=== PATIENT | female | born 1985 | race Caucasian/White ===

== ENCOUNTER 2020-01-22 15:10 | Emergency (ER) | payer MEDICAID ==
[2020-01-22] MEDS ORDERED: Sodium Chloride 0.9% 1000 ML 1,000 ML IV STA (15:33)
[2020-01-22 16:00] LABS: Absolute Neutrophil Ct (ANC) 10.25 (1.4-6.9); BASOPHIL % 0.2 % (0.0-0.4); Basophil (Absolute #) 0.02 (0-0.4); Eosinophil % 0.1 % (0.00-5.0); Eosinophil (Absolute #) 0.01 (0-0.5); Hematocrit 38.1 % (35-47); Hemoglobin 12.4 gm/dl (12.0-16.0); Lymphocyte (Absolute #) 2.28 (1.0-4.6); Lymphocytes % 17.2 % (24.0-44.0); Mean Cell Volume 86.8 fl (78-100); Mean Corpuscular Hemoglobin 28.2 pg (26-32); Mean Corpuscular Hgb Concent. 32.5 g/dl (32-36); Mean Platelet Volume 10.5 fl (7.5-11.0); Monocyte (Absolute #) 0.66 (0.0-1.3); Neutrophil % 77.5 % (36.0-66.0); Platelet Count 193 K/mm3 (150-450); Red Blood Count 4.39 M/mm3 (4.1-5.4); Red Cell Distribution Width 12.6 % (11.5-14.0); White Blood Count 13.2 K/mm3 (4.0-10.5)
[2020-01-22] MEDS ORDERED: Sodium Chloride 0.9% 1000 ML 1,000 ML ONE (16:02)
[2020-01-22 16:13] VITALS: O2SAT 98
[2020-01-22 16:19] LABS: ALBUMIN 3.6 g/dL (3.5-5.0); ALKALINE PHOSPHATASE 61 U/L (38-126); ANION GAP 8.6 MEQ/L (5-15); BLOOD UREA NITROGEN 8 mg/dL (7-17); CHLORIDE 102 mmol/L (98-107); Calcium 8.9 mg/dL (8.4-10.2); Carbon Dioxide 26 mmol/L (22-30); Creatinine 1 0.52 mg/dL (0.52-1.04); EST GLOMERULAR FILTRATION RATE > 60.0 ML/MIN; Glucose 103 mg/dL (74-106); Potassium 3.7 mmol/L (3.5-5.1); SGOT/AST 22 U/L (14-36); SGPT/ALT 19 U/L (0-35); SODIUM 133 mmol/L (137-145); Total Protein 6.8 g/dL (6.3-8.2)
--- NOTE | 2020-01-22 16:22 | ERPHSYRPT ---
- History of Present Illness Time Seen by Provider: 01/22/20 15:40 Source: patient Patient Subjective Stated Complaint: "I had lower back pain then some spotting and had a clot." Triage Nursing Assessment: Patient reported lower back pain with associated mild vaginal spotting and single clot expulsion. Patient is . Patient also reported mild fatigue over the past week. Denied abdominal pain, nausea, or vomiting. Denied any recent injuries/illnesses. Denied dysuria, frequency, or urgency. Pupils 3mm PERRL, neck supple non-tender. Symmetrical chest expansion. Heart tones S1 S2 regular rate and rhythme. Lungs clear to auscultation with adequate airflow. Peripheral pulses +2. Abdomen soft non-tender non-distended. Bowel sounds present throughout all quadrants. No palpable hepatospelenomegaly. No noted dependent edema. Physician History: Patient is a at 11 weeks 4 days who is O positive who 4 hours prior to coming into the emergency department, patient had some blood on the toilet paper after urinating and passing a clot that she felt was vaginal. She had some mild low back pain with this also. Patient called her OB's office who recommended she come in to the emergency room for further evaluation Timing/Duration: hour(s) (4), sudden, improved Activites at Onset: other (urinating) Onset Location: vaginal, low back pain Pain Radiation: none Severity of Pain-Max: moderate Severity of Pain-Current: none Prior abdominal problems: none Modifying Factors: Worsens With: urinating Associated Symptoms: , lower back pain, No abdominal pain, No fever, No chills, No diaphoresis, No nausea, No vomiting, No dysuria, No urinary frequency, No swelling, No vaginal discharge, No vaginal fluid leakage Allergies/Adverse Reactions: No Known Drug Allergies Allergy (Unverified 01/22/20 15:22) Home Medications: No Reportable Medications [No Reported Medications] 01/22/20 [History] Hx Tetanus, Diphtheria Vaccination/Date Given: Yes Hx Influenza Vaccination/Date Given: No Travel Risk - International Travel Have you traveled outside of the country in past 3 weeks: No - Coronavirus Screening Are you exhibiting any of the following symptoms?: No Close contact with a COVID-19 positive Pt in past 14-21 Days: No - Review of Systems Constitutional: Fatigue, No Fever, No Chills, No Malaise, No Night Sweats, No Weakness Eyes: No Symptoms Ears, Nose, & Throat: No Throat Pain Respiratory: No Cough, No Dyspnea Cardiac: No Chest Pain, No Edema, No Syncope Abdominal/Gastrointestinal: No Abdominal Pain, No Nausea, No Vomiting, No Diarrhea, No Hematemesis, No Hematochezia, No Melena Genitourinary Symptoms: Hematuria, Vaginal Bleeding, No Dysuria, No Flank Pain Musculoskeletal: No Back Pain, No Neck Pain Skin: No Rash Neurological: No Dizziness, No Focal Weakness, No Headache, No Parasthesia, No Sensory Changes Psychological: No Symptoms Endocrine: No Symptoms, No Polyuria Hematologic/Lymphatic: No Easy Bleeding, No Easy Bruising All Other Systems: Reviewed and Negative - Past Medical History Pertinent Past Medical History: No - Past Surgical History Past Surgical History: Yes - Social History Smoking Status: Never smoker Exposure to second hand smoke: No Drug Use: none Patient Lives Alone: No - Female History Hx Now: Yes Expected Date of Delivery: 08/08/20 - Nursing Vital Signs Nursing Vital Signs: Initial Vital Signs Temperature 98.7 F 01/22/20 15:11 Pulse Rate 94 H 01/22/20 15:11 Respiratory Rate 16 01/22/20 15:11 Blood Pressure 124/70 01/22/20 15:11 O2 Sat by Pulse Oximetry 100 01/22/20 15:11 Pain Scale Pain Intensity 0 - Physical Exam General Appearance: no apparent distress, alert Eye Exam: PERRL/EOMI, eyes nml inspection Ears, Nose, Throat Exam: normal ENT inspection, pharynx normal, moist mucous membranes Neck Exam: normal inspection, non-tender, supple, full range of motion Respiratory Exam: normal breath sounds, lungs clear, No respiratory distress Cardiovascular Exam: regular rate/rhythm, normal heart sounds, normal peripheral pulses Gastrointestinal/Abdomen Exam: soft, normal bowel sounds, No tenderness, No distention, No mass, No guarding Back Exam: normal inspection, normal range of motion, No CVA tenderness, No vertebral tenderness Extremity Exam: normal inspection, normal range of motion, pelvis stable Neurologic Exam: alert, oriented x 3, cooperative, set off press operator II-XII nml as tested, normal mood/affect, sensation nml, No motor deficits Skin Exam: normal color, warm, dry, No rash, No petechiae, No jaundice Lymphatic Exam: No adenopathy SpO2 Interpretation: normal SpO2: 98 O2 Delivery: Room Air - Radiology Ultrasound Exam OB Ultrasound: Other (Per radiologist interpretation: Single viable intrauterine measuring 11 weeks 6 days. Expected date of confinement is August 06, 2020. Left ovary unremarkable. Right ovary not seen. No suspicious adnexal mass or free fluid. No abnormal subchorionic fluid.) Ordered Tests: Active Orders 24 hr Category Date Time Status Heart Tones-ED STAT Care 01/22/20 15:20 Active IV Insertion STAT Care 01/22/20 15:33 Active Pelvic Exam Assist STAT Care 01/22/20 15:33 Active OB <14 WKS 1ST GESTATION [US] Stat Exams 01/22/20 15:33 Completed CBC W DIFF Stat Lab 01/22/20 15:50 Completed CMP Stat Lab 01/22/20 15:50 Completed HCG QUALITATIVE,SERUM Stat Lab 01/22/20 15:50 Completed HCG, Quantitative (Inhouse) Stat Lab 01/22/20 16:42 Received UA W/RFX UR CULTURE Stat Lab 01/22/20 16:21 Completed Medication Summary Discontinued Medications Generic Name Dose Route Start Last Admin Trade Name Freq PRN Reason Stop Dose Admin Sodium Chloride 1,000 mls @ 999 mls/hr 01/22/20 15:33 01/22/20 17:09 Sodium Chloride 0.9% 1000 Ml IV 01/22/20 16:33 Infused .Q1H1M STA Infusion Sodium Chloride Confirm 01/22/20 16:02 Sodium Chloride 0.9% 1000 Ml Administered 01/22/20 16:03 Dose 1,000 mls @ ud .ROUTE .K-MED ONE Lab/Rad Data: Laboratory Result Diagrams 01/22/20 15:50 01/22/20 15:50 Laboratory Results 01/22/20 01/22/20 01/22/20 Range/Units 16:42 16:21 15:50 WBC (4.0-10.5) K/mm3 RBC (4.1-5.4) M/mm3 Hgb (12.0-16.0) gm/dl Hct (35-47) % MCV (78-100) fl MCH (26-32) pg MCHC (32-36) g/dl RDW (11.5-14.0) % Plt Count (150-450) K/mm3 MPV (7.5-11.0) fl Gran % (36.0-66.0) % Eos # (Auto) (0-0.5) Absolute Lymphs (auto) (1.0-4.6) Absolute Monos (auto) (0.0-1.3) Lymphocytes % (24.0-44.0) % Monocytes % (0.0-12.0) % Eosinophils % (0.00-5.0) % Basophils % (0.0-0.4) % Absolute Granulocytes (1.4-6.9) Basophils # (0-0.4) Sodium (137-145) mmol/L Potassium (3.5-5.1) mmol/L Chloride (98-107) mmol/L Carbon Dioxide (22-30) mmol/L Anion Gap (5-15) MEQ/L BUN (7-17) mg/dL Creatinine (0.52-1.04) mg/dL Estimated GFR ML/MIN Glucose (74-106) mg/dL Calcium (8.4-10.2) mg/dL Total Bilirubin (0.2-1.3) mg/dL AST (14-36) U/L ALT (0-35) U/L Alkaline Phosphatase (38-126) U/L Serum Total Protein (6.3-8.2) g/dL Albumin (3.5-5.0) g/dL Serum , Qual POSITIVE (Negative) Urine Color STRAW (YELLOW) Urine Appearance CLEAR (CLEAR) Urine pH 7.0 (5-6) Ur Specific [place] 1.002 (1.005-1.025) Urine Protein NEGATIVE (Negative) Urine Ketones NEGATIVE (NEGATIVE) Urine Blood NEGATIVE (0-5) Heriberto/ul Urine Nitrite NEGATIVE (NEGATIVE) Urine Bilirubin NEGATIVE (NEGATIVE) Urine Urobilinogen NEGATIVE (0-1) mg/dL Ur Leukocyte Esterase NEGATIVE (NEGATIVE) Urine WBC (Auto) NONE (0-5) /HPF Urine RBC (Auto) NONE (0-2) /HPF U Epithel Cells (Auto) NONE (FEW) /HPF Urine Bacteria (Auto) NONE (NEGATIVE) /HPF Urine Mucus (Auto) SLIGHT (NEGATIVE) /HPF Urine Culture Reflexed NO (NO) Urine Glucose NEGATIVE (NEGATIVE) mg/dL ABO Group O Rh Factor POSITIVE Antibody Screen NEGATIVE (NEGATIVE) 01/22/20 01/22/20 Range/Units 15:50 15:50 WBC 13.2 H (4.0-10.5) K/mm3 RBC 4.39 (4.1-5.4) M/mm3 Hgb 12.4 (12.0-16.0) gm/dl Hct 38.1 (35-47) % MCV 86.8 (78-100) fl MCH 28.2 (26-32) pg MCHC 32.5 (32-36) g/dl RDW 12.6 (11.5-14.0) % Plt Count 193 (150-450) K/mm3 MPV 10.5 (7.5-11.0) fl Gran % 77.5 H (36.0-66.0) % Eos # (Auto) 0.01 (0-0.5) Absolute Lymphs (auto) 2.28 (1.0-4.6) Absolute Monos (auto) 0.66 (0.0-1.3) Lymphocytes % 17.2 L (24.0-44.0) % Monocytes % 5.0 (0.0-12.0) % Eosinophils % 0.1 (0.00-5.0) % Basophils % 0.2 (0.0-0.4) % Absolute Granulocytes 10.25 H (1.4-6.9) Basophils # 0.02 (0-0.4) Sodium 133 L (137-145) mmol/L Potassium 3.7 (3.5-5.1) mmol/L Chloride 102 (98-107) mmol/L Carbon Dioxide 26 (22-30) mmol/L Anion Gap 8.6 (5-15) MEQ/L BUN 8 (7-17) mg/dL Creatinine 0.52 (0.52-1.04) mg/dL Estimated GFR > 60.0 ML/MIN Glucose 103 (74-106) mg/dL Calcium 8.9 (8.4-10.2) mg/dL Total Bilirubin 0.40 (0.2-1.3) mg/dL AST 22 (14-36) U/L ALT 19 (0-35) U/L Alkaline Phosphatase 61 (38-126) U/L Serum Total Protein 6.8 (6.3-8.2) g/dL Albumin 3.6 (3.5-5.0) g/dL Serum , Qual (Negative) Urine Color (YELLOW) Urine Appearance (CLEAR) Urine pH (5-6) Ur Specific [place] (1.005-1.025) Urine Protein (Negative) Urine Ketones (NEGATIVE) Urine Blood (0-5) Heriberto/ul Urine Nitrite (NEGATIVE) Urine Bilirubin (NEGATIVE) Urine Urobilinogen (0-1) mg/dL Ur Leukocyte Esterase (NEGATIVE) Urine WBC (Auto) (0-5) /HPF Urine RBC (Auto) (0-2) /HPF U Epithel Cells (Auto) (FEW) /HPF Urine Bacteria (Auto) (NEGATIVE) /HPF Urine Mucus (Auto) (NEGATIVE) /HPF Urine Culture Reflexed (NO) Urine Glucose (NEGATIVE) mg/dL ABO Group Rh Factor Antibody Screen (NEGATIVE) - Progress Progress: re-examined Progress Note: 01/22/20 17:48 Patient feels well and is hemodynamically in good condition. Patient denies any further vaginal bleeding or leakage of fluid 01/22/20 17:51 Patient came into the emergency department due to having concerns of blood after urinating and passing a blood clot as she is in her first trimester of her . Patient's lab work was normal with her blood type being O+ and a transvaginal ultrasound showed an intrauterine that was viable at 11 weeks +6 days. Patient had no signs of any subchorionic fluid collection or any other abnormalities although the one ovary was not seen very well. Patient was discussed with her BASIN FINISH OPERATOR TIG WELDER, Dr. Chowdhury, who stated patient did not require a pelvic examination and could be discharged home to follow-up with him as an outpatient in his office. I reviewed with patient in detail what signs and symptoms to return back to the emergency department as she was hemodynamically good condition, no signs of infection in the urinalysis, normal LFTs, renal function, and no anemia on her lab work today to explain her symptoms. Blood Culture(s) Obtained: No Antibiotics given: No Discussed with : Griffin (At 16:40, discussed the patient with Dr. Chowdhury, patient's OB. states patient does not need a pelvic exam with the ultrasound showing its results and want me to reassure the patient and follow the patient up as an outpatient with him in his office.) Will see patient in: office Counseled pt/family regarding: lab results, diagnosis, need for follow-up, rad results - Departure Departure Disposition: Home Clinical Impression: First trimester bleeding, Low back pain during in first trimester Condition: Good Critical Care Time: No Referrals: CARROLL CHOWDHURY DO [Primary Care Provider] - 01/23/20 Instructions: Bleeding With (DC), Threatened Miscarriage (DC), Low Back Pain (DC) Additional Instructions: Return immediately back to the emergency department if you have any new abdominal pain, new fever, new painful urination, new blood in the urine, new back pain, worsening vaginal bleeding, new leakage of fluid, new headache, new vision changes, new pain in the abdomen, new swelling in the face or hands, new shortness of breath, new pain on breathing or any other concerning signs or symptoms that were not present at today's emergency room visit for immediate reevaluation in the emergency department
--- NOTE | 2020-01-22 16:33 | XRAY ---
Indication: Bleeding. Two-dimensional transabdominal early OB ultrasound performed. Comparison: None There is a single viable intrauterine . Mean crown-rump length measures 5.14 cm corresponding to 11 weeks 6 days. heart rate 163 BPM. No abnormal subchorionic fluid. Left ovary unremarkable. Right ovary not seen. No suspicious adnexal mass or free fluid. Impression: Single viable intrauterine measuring 11 weeks 6 days. Expected date confinement is August 06, 2020.
[2020-01-22 16:39] LABS: Appearance CLEAR (CLEAR); Bilirubin NEGATIVE (NEGATIVE); Blood NEGATIVE Ery/ul (0-5); Glucose NEGATIVE (NEGATIVE); Ketones NEGATIVE (NEGATIVE); Leukocyte Esterase NEGATIVE (NEGATIVE); Mucus SLIGHT /HPF (NEGATIVE); Nitrite NEGATIVE (NEGATIVE); Protein,Urine Dip NEGATIVE (Negative); Specific Gravity 1.002 (1.005-1.025); Urobilinogen NEGATIVE mg/dL (0-1)
[2020-01-22 17:14] VITALS: BP 117/75; PULSE 85
[2020-01-22 17:33] LABS: ABO TYPING O; Antibody Screen NEGATIVE (NEGATIVE); RH TYPING POSITIVE
== END 2020-01-22 17:53 | disposition home or self-care (01) ==
LOC: ED 15:10
DX: O20.9 Hemorrhage in early pregnancy, unspecified (principal); Z3A.11 11 weeks gestation of pregnancy; M54.5 Low back pain
CPT/HCPCS: 36000; 36415; 76801; 80053; 81001; 81025; 84702; 85025; 86850; 86900; 86901; 87491; 87591; 96360; 99284

== ENCOUNTER 2020-06-01 07:53 | Emergency (ER) | payer OTHER ==
[2020-06-01] MEDS ORDERED: Sodium Chloride 0.9% 1000 ML 1,000 ML ONE ×2 (08:17→10:13)
[2020-06-01] MEDS ORDERED: Zofran 4 MG/2 ML VIAL ONE (08:17)
[2020-06-01] MEDS: Zofran 4 MG/2 ML VIAL IV ONE (08:18)
[2020-06-01] MEDS: Sodium Chloride 0.9% 1000 ML 1,000 ML IV STA ×2 (08:18→10:17)
[2020-06-01 08:22] LABS: Absolute Neutrophil Ct (ANC) 13.16 (1.4-6.9); BASOPHIL % 0.1 % (0.0-0.4); Basophil (Absolute #) 0.02 (0-0.4); Eosinophil (Absolute #) 0 (0-0.5); Hematocrit 38.7 % (35-47); Hemoglobin 12.7 gm/dl (12.0-16.0); Lymphocyte (Absolute #) 1.48 (1.0-4.6); Lymphocytes % 9.9 % (24.0-44.0); Mean Corpuscular Hemoglobin 28.2 pg (26-32); Mean Corpuscular Hgb Concent. 32.8 g/dl (32-36); Mean Platelet Volume 10.5 fl (7.5-11.0); Monocyte (Absolute #) 0.33 (0.0-1.3); Monocytes % 2.2 % (0.0-12.0); Neutrophil % 87.8 % (36.0-66.0); Platelet Count 242 K/mm3 (150-450); Red Cell Distribution Width 12.7 % (11.5-14.0)
[2020-06-01 08:34] LABS: ALBUMIN 3.6 g/dL (3.5-5.0); ALKALINE PHOSPHATASE 106 U/L (38-126); AMYLASE 60 U/L (30-110); ANION GAP 13.6 MEQ/L (5-15); BLOOD UREA NITROGEN 4 mg/dL (7-17); CHLORIDE 101 mmol/L (98-107); Calcium 8.8 mg/dL (8.4-10.2); Carbon Dioxide 23 mmol/L (22-30); Creatinine 1 0.39 mg/dL (0.52-1.04); EST GLOMERULAR FILTRATION RATE > 60.0 ML/MIN; Glucose 110 mg/dL (74-106); LIPASE 60 U/L (23-300); Potassium 3.6 mmol/L (3.5-5.1); SGOT/AST 27 U/L (14-36); SGPT/ALT 23 U/L (0-35); SODIUM 134 mmol/L (137-145); Total Protein 6.7 g/dL (6.3-8.2)
--- NOTE | 2020-06-01 08:34 | ERPHSYRPT ---
- History of Present Illness Historian: patient Exam Limitations: no limitations Patient Subjective Stated Complaint: abd pain, vomiting yesterday, bilateral feet swelling Triage Nursing Assessment: pt to ED c/o abd pain epigastric region, emesis yesterday, and bilateral feet swelling onset yesterday. rates 8/10 pain that radiates around to lower back, relieved by ice/heat therapy. on assessment, pt does alert RN that she is 30 wks and 1 day today. second , first was 10 years ago. Physician History: 34 yo wf who is 30 wks presents w N/V x11hr's w mild/mod epigastric pain. She denies vag bleeding/DC, hematemesis/ diarrhea/melena/hematochezia/dysuria/hematuria/fever. Timing/Duration: hour(s) (11hrs) Activities at Onset: rest Abdominal Pain Onset Location: epigastric Pain Radiation: back Severity of Pain-Max: mild Severity of Pain-Current: mild Modifying Factors: Improves With: nothing Associated Symptoms: back, nausea, vomiting, No chest pain, No diaphoresis, No diarrhea, No fever/chills, No fatigue, No headache, No heartburn, No loss of appetite, No neck pain, No rash, No shortness of breath, No syncope, No weakness Previous symptoms: same symptoms as today Allergies/Adverse Reactions: No Known Drug Allergies Allergy (Verified 06/01/20 07:55) Hx Tetanus, Diphtheria Vaccination/Date Given: Yes Hx Influenza Vaccination/Date Given: No Immunizations Up to Date: Yes Travel Risk - International Travel Have you traveled outside of the country in past 3 weeks: No - Coronavirus Screening Are you exhibiting any of the following symptoms?: Yes Symptoms: Vomiting/Diarrhea Close contact with a COVID-19 positive Pt in past 14-21 Days: No - Review of Systems Constitutional: No Symptoms Eyes: No Symptoms Ears, Nose, & Throat: No Symptoms Respiratory: No Symptoms Cardiac: No Symptoms Genitourinary Symptoms: No Symptoms Musculoskeletal: No Symptoms Skin: No Symptoms Neurological: No Symptoms Psychological: No Symptoms Endocrine: No Symptoms Hematologic/Lymphatic: No Symptoms Immunological/Allergic: No Symptoms - Past Medical History Pertinent Past Medical History: No - Past Surgical History Past Surgical History: Yes - Social History Smoking Status: Never smoker Exposure to second hand smoke: No Drug Use: none Patient Lives Alone: No - Female History Hx Now: Yes (30 weeks 1 day) - Nursing Vital Signs Nursing Vital Signs: Initial Vital Signs Temperature 98 F 06/01/20 07:56 Pulse Rate 104 H 06/01/20 07:56 Respiratory Rate 18 06/01/20 07:56 Blood Pressure 137/62 06/01/20 07:56 O2 Sat by Pulse Oximetry 100 06/01/20 07:56 Pain Scale Pain Intensity 1 - Physical Exam General Appearance: no apparent distress Eye Exam: PERRL/EOMI, eyes nml inspection Ears, Nose, Throat Exam: normal ENT inspection, TMs normal, pharynx normal, moist mucous membranes Neck Exam: normal inspection, non-tender, No meningismus, No mass, No Brudzinski, No Kernig's, No carotid bruit Respiratory Exam: normal breath sounds, lungs clear, airway intact Cardiovascular Exam: regular rate/rhythm, normal heart sounds, normal peripheral pulses, No murmur Gastrointestinal/Abdomen Exam: soft, normal bowel sounds, tenderness (Mild diffuse) Back Exam: normal inspection, normal range of motion, No CVA tenderness, No vertebral tenderness Extremity Exam: normal inspection, normal range of motion Neurologic Exam: alert, oriented x 3, cooperative, soup person II-XII nml as tested, normal mood/affect, nml cerebellar function, nml station & gait, sensation nml SpO2: 100 - Course Nursing assessment & vital signs reviewed: Yes - Radiology Ultrasound Exam Abdomen Ultrasound: discussed w/radiologist (FHT 133/breech/SHIRAZ 22.5/posterior placenta wo abruption-previa) Ordered Tests: Active Orders 24 hr Category Date Time Status IV Insertion STAT Care 06/01/20 08:12 Completed GALLBLADDER [US] Stat Exams 06/01/20 09:22 Completed OB FOLLOW UP PER FETUS [US] Stat Exams 06/01/20 09:22 Completed AMYLASE Stat Lab 06/01/20 08:21 Completed CBC W DIFF Stat Lab 06/01/20 08:21 Completed CMP Stat Lab 06/01/20 08:21 Completed CULTURE,URINE Stat Lab 06/01/20 08:14 Received LIPASE Stat Lab 06/01/20 08:21 Completed UA W/RFX UR CULTURE Stat Lab 06/01/20 08:14 Completed Medication Summary Discontinued Medications Generic Name Dose Route Start Last Admin Trade Name Freq PRN Reason Stop Dose Admin Fentanyl Citrate 25 mcg 06/01/20 10:06 06/01/20 10:17 Sublimaze 100 Mcg/2 Ml IV 06/01/20 10:07 25 mcg STAT ONE Administration Fentanyl Citrate Confirm 06/01/20 10:13 Sublimaze 100 Mcg/2 Ml Administered 06/01/20 10:14 Dose 100 mcg .ROUTE .STK-MED ONE Sodium Chloride 1,000 mls @ 999 mls/hr 06/01/20 08:12 06/01/20 09:21 Sodium Chloride 0.9% 1000 Ml IV 06/01/20 09:12 Infused .Q1H1M STA Infusion Sodium Chloride Confirm 06/01/20 08:17 Sodium Chloride 0.9% 1000 Ml Administered 06/01/20 08:18 Dose 1,000 mls @ ud .ROUTE .STK-MED ONE Sodium Chloride 1,000 mls @ 999 mls/hr 06/01/20 10:06 06/01/20 10:17 Sodium Chloride 0.9% 1000 Ml IV 06/01/20 11:06 999 mls/hr .Q1H1M STA Administration Sodium Chloride Confirm 06/01/20 10:13 Sodium Chloride 0.9% 1000 Ml Administered 06/01/20 10:14 Dose 1,000 mls @ ud .ROUTE .STK-MED ONE Ondansetron HCl 4 mg 06/01/20 08:12 06/01/20 08:18 Zofran 4 Mg/2 Ml Vial IV 06/01/20 08:13 4 mg STAT ONE Administration Ondansetron HCl Confirm 06/01/20 08:17 Zofran 4 Mg/2 Ml Vial Administered 06/01/20 08:18 Dose 4 mg .ROUTE .STK-MED ONE Lab/Rad Data: Laboratory Result Diagrams 06/01/20 08:21 06/01/20 08:21 Laboratory Results 06/01/20 06/01/20 06/01/20 Range/Units 08:21 08:21 08:14 WBC 15.0 H (4.0-10.5) K/mm3 RBC 4.50 (4.1-5.4) M/mm3 Hgb 12.7 (12.0-16.0) gm/dl Hct 38.7 (35-47) % MCV 86.0 (78-100) fl MCH 28.2 (26-32) pg MCHC 32.8 (32-36) g/dl RDW 12.7 (11.5-14.0) % Plt Count 242 (150-450) K/mm3 MPV 10.5 (7.5-11.0) fl Gran % 87.8 H (36.0-66.0) % Eos # (Auto) 0 (0-0.5) Absolute Lymphs (auto) 1.48 (1.0-4.6) Absolute Monos (auto) 0.33 (0.0-1.3) Lymphocytes % 9.9 L (24.0-44.0) % Monocytes % 2.2 (0.0-12.0) % Eosinophils % 0.0 (0.00-5.0) % Basophils % 0.1 (0.0-0.4) % Absolute Granulocytes 13.16 H (1.4-6.9) Basophils # 0.02 (0-0.4) Sodium 134 L (137-145) mmol/L Potassium 3.6 (3.5-5.1) mmol/L Chloride 101 (98-107) mmol/L Carbon Dioxide 23 (22-30) mmol/L Anion Gap 13.6 (5-15) MEQ/L BUN 4 L (7-17) mg/dL Creatinine 0.39 L (0.52-1.04) mg/dL Estimated GFR > 60.0 ML/MIN Glucose 110 H (74-106) mg/dL Calcium 8.8 (8.4-10.2) mg/dL Total Bilirubin 0.30 (0.2-1.3) mg/dL AST 27 (14-36) U/L ALT 23 (0-35) U/L Alkaline Phosphatase 106 (38-126) U/L Serum Total Protein 6.7 (6.3-8.2) g/dL Albumin 3.6 (3.5-5.0) g/dL Amylase 60 (30-110) U/L Lipase 60 (23-300) U/L Urine Color YELLOW (YELLOW) Urine Appearance SLIGHTLY CLOUDY (CLEAR) Urine pH 8.0 (5-6) Ur Specific [place] 1.019 (1.005-1.025) Urine Protein 30 (Negative) Urine Ketones MODERATE (NEGATIVE) Urine Blood NEGATIVE (0-5) Heriberto/ul Urine Nitrite NEGATIVE (NEGATIVE) Urine Bilirubin NEGATIVE (NEGATIVE) Urine Urobilinogen NEGATIVE (0-1) mg/dL Ur Leukocyte Esterase MODERATE (NEGATIVE) Urine WBC (Auto) 16-25 (0-5) /HPF Urine RBC (Auto) 0-2 (0-2) /HPF U Epithel Cells (Auto) RARE (FEW) /HPF Urine Bacteria (Auto) FEW (NEGATIVE) /HPF Urine Mucus (Auto) SLIGHT (NEGATIVE) /HPF Urine Culture Reflexed YES (NO) Urine Glucose NEGATIVE (NEGATIVE) mg/dL - Progress Progress Note: 06/01/20 09:48 1L NS bolus/4mg IV Zofran w mild improvement Spoke w gabe Stuart GS consulted 06/01/20 09:57 Dr. Ocasio consulted and stated that pt has biliary colic but would not remove GB at this time due to possibility of premature labor. 06/01/20 10:37 Pain decreased from 8 to 1 w 25umg IV Fentanyl. Spoke w Dr. Chowdhury again and wants to start Macrobid for UTI and Zofran for nausea. Wants pt to f/u for next scheduled appointment. Discussed with : Nataliya Moya Counseled pt/family regarding: lab results, need for follow-up, rad results - Departure Departure Disposition: Home Clinical Impression: Biliary colic, Urinary tract infection Condition: Stable Critical Care Time: No Referrals: DOCTOR,NO FAMILY [Primary Care Provider] - Instructions: Urinary Tract Infection, Adult (DC), Gallstones (DC), Urinary Tract Infections in Additional Instructions: Follow up with Dr. Luciana Gillette for nausea/vomiting Start Macrobid twice a day for 1 week Return to ER for increasing pain, inability to hold down fluids, or temperature greater than 100.5 Prescriptions: Ondansetron ODT 4 MG [Zofran Odt 4 mg] 4 mg PO Q6H PRN PRN #10 tab.rapdis PRN Reason: Nausea/Vomiting Nitrofurantoin Monohyd/M-Cryst [Macrobid 100 mg Capsule] 100 mg PO BID #14 capsule
[2020-06-01 08:48] LABS: Appearance SLIGHTLY CLOUDY (CLEAR); Bilirubin NEGATIVE (NEGATIVE); Blood NEGATIVE Ery/ul (0-5); Epithelial Cells RARE /HPF (FEW); Glucose NEGATIVE (NEGATIVE); Ketones MODERATE (NEGATIVE); Leukocyte Esterase MODERATE (NEGATIVE); Mucus SLIGHT /HPF (NEGATIVE); Nitrite NEGATIVE (NEGATIVE); Protein,Urine Dip 30 (Negative); RBC 0-2 /HPF (0-2); Specific Gravity 1.019 (1.005-1.025); Urobilinogen NEGATIVE mg/dL (0-1)
[2020-06-01 08:49] LABS: Bacteria FEW /HPF (NEGATIVE)
--- NOTE | 2020-06-01 09:35 | XRAY ---
Indication: Nausea and vomiting. Two-dimensional limited OB ultrasound performed. Comparison: March 22, 2020. Again there is a single viable intrauterine currently in breech presentation. heart rate 133 BPM. Again posterior placenta without abruption/previa. Four-quadrant SHIRAZ is 22.5 cm with largest pocket 8.5 cm. SHIRAZ was previously 10.2 cm. Cervical length is 4.5 cm. Impression: Increasing SHIRAZ bordering on polyhydramnios.
--- NOTE | 2020-06-01 09:37 | XRAY ---
Indication: Nausea and vomiting. 31 week . Two-dimensional gallbladder sonogram performed. Comparison: None Gallbladder mildly distended with 1.2 cm gallstone and subcentimeter polyp. No abnormal gallbladder wall thickening or pericholecystic fluid. Common bile duct measures 4.4 mm. No intrahepatic biliary distention. Remaining visualized pancreas, liver, and right kidney sonographically unremarkable. No ascites. Impression: Cholelithiasis and gallbladder polyp. Negative for acute cholecystitis or biliary distention.
[2020-06-01] MEDS ORDERED: SUBLIMAZE 100 MCG/2 ML ONE (10:13)
[2020-06-01] MEDS: SUBLIMAZE 100 MCG/2 ML IV ONE (10:17)
[2020-06-01 10:19] VITALS: BP 125/72; PULSE 80
[2020-06-01 10:42] VITALS: O2SAT 100
== END 2020-06-01 10:53 | disposition home or self-care (01) ==
LOC: ED 07:53
DX: O23.43 Unspecified infection of urinary tract in pregnancy, third trimester (principal); Z3A.30 30 weeks gestation of pregnancy; Z37.0 Single live birth; K80.50 Calculus of bile duct without cholangitis or cholecystitis without obstruction
CPT/HCPCS: 36000; 36415; 76705; 76816; 80053; 81001; 82150; 83690; 85025; 87086; 96360; 96374; 96375; 99284; J2405; J3010

== ENCOUNTER 2020-07-14 10:00 | Observation (INO) | payer OTHER ==
[2020-07-14 11:39] LABS: Absolute Neutrophil Ct (ANC) 6.48 (1.4-6.9); BASOPHIL % 0.2 % (0.0-0.4); Basophil (Absolute #) 0.02 (0-0.4); Eosinophil % 0.3 % (0.00-5.0); Eosinophil (Absolute #) 0.03 (0-0.5); Hematocrit 37.5 % (35-47); Lymphocyte (Absolute #) 2.35 (1.0-4.6); Lymphocytes % 25.1 % (24.0-44.0); Mean Cell Volume 87.6 fl (78-100); Mean Platelet Volume 10.6 fl (7.5-11.0); Monocytes % 5.3 % (0.0-12.0); Neutrophil % 69.1 % (36.0-66.0); Platelet Count 212 K/mm3 (150-450); Red Blood Count 4.28 M/mm3 (4.1-5.4); Red Cell Distribution Width 12.8 % (11.5-14.0); White Blood Count 9.4 K/mm3 (4.0-10.5)
[2020-07-14 11:54] LABS: Appearance SLIGHTLY CLOUDY (CLEAR); Bacteria RARE /HPF (NEGATIVE); Bilirubin NEGATIVE (NEGATIVE); Blood NEGATIVE Ery/ul (0-5); Epithelial Cells RARE /HPF (FEW); Glucose NEGATIVE (NEGATIVE); Ketones NEGATIVE (NEGATIVE); Leukocyte Esterase SMALL (NEGATIVE); Mucus MODERATE /HPF (NEGATIVE); Nitrite NEGATIVE (NEGATIVE); Protein,Urine Dip 30 (Negative); RBC 0-2 /HPF (0-2); Specific Gravity 1.021 (1.005-1.025); Urobilinogen 2 mg/dL (0-1)
[2020-07-14 12:07] LABS: ALBUMIN 3.4 g/dL (3.5-5.0); ALKALINE PHOSPHATASE 126 U/L (38-126); ANION GAP 9.5 MEQ/L (5-15); BLOOD UREA NITROGEN 6 mg/dL (7-17); CHLORIDE 104 mmol/L (98-107); Calcium 8.8 mg/dL (8.4-10.2); Carbon Dioxide 26 mmol/L (22-30); Creatinine 1 0.47 mg/dL (0.52-1.04); EST GLOMERULAR FILTRATION RATE > 60.0 ML/MIN; Glucose 84 mg/dL (74-106); Potassium 4.4 mmol/L (3.5-5.1); SGOT/AST 25 U/L (14-36); SGPT/ALT 20 U/L (0-35); SODIUM 135 mmol/L (137-145); Total Protein 6.5 g/dL (6.3-8.2); Uric Acid 3.6 mg/dL (2.6-6.0)
[2020-07-14 12:14] LABS: Creatinine, Urine Random 196.1 mg/dl
[2020-07-14 13:30] VITALS: BP 120/75; PULSE 88
== END 2020-07-14 13:25 | disposition home or self-care (01) ==
LOC: WHC 10:00 → OB 10:29
PROVIDERS: ADMIT Obstetrics & Gynecology; ATTEND Obstetrics & Gynecology
DX: Z34.83 Encounter for supervision of other normal pregnancy, third trimester (principal); Z3A.36 36 weeks gestation of pregnancy
CPT/HCPCS: 36415; 59025; 80053; 81001; 82570; 84156; 84550; 85025; 87081; 87086; G0378; 59426; 81002

== ENCOUNTER 2020-07-18 09:38 | Observation (INO) | payer OTHER ==
[2020-07-18 10:19] VITALS: O2SAT 100
[2020-07-18 12:14] VITALS: BP 118/61; PULSE 82
== END 2020-07-18 10:40 | disposition home or self-care (01) ==
LOC: OB 09:38
PROVIDERS: ADMIT Obstetrics & Gynecology; ATTEND Obstetrics & Gynecology
DX: Z34.83 Encounter for supervision of other normal pregnancy, third trimester (principal); Z3A.36 36 weeks gestation of pregnancy
CPT/HCPCS: 59025; G0378

== ENCOUNTER 2020-08-07 17:01 | Inpatient (IN) | payer OTHER ==
[2020-08-07] MEDS ORDERED: Zofran 4 MG/2 ML VIAL IV PRN (17:10)
[2020-08-07] MEDS ORDERED: TYLENOL EXTRA STRENGTH 500 MG PO PRN (17:10)
[2020-08-07] MEDS ORDERED: XYLOCAINE 1% HCL 20 ML MDV IJ PRN (17:10)
[2020-08-07] MEDS ORDERED: PITOCIN 30 UNITS/ LR 500 ML 30 UNITS/500 ML IV.SOLN. IV SCH (17:30)
[2020-08-07] MEDS ORDERED: Lactated Ringers 1,000 ML IV SCH (17:30)
[2020-08-07 18:01] LABS: Absolute Neutrophil Ct (ANC) 7.24 (1.4-6.9); BASOPHIL % 0.1 % (0.0-0.4); Basophil (Absolute #) 0.01 (0-0.4); Eosinophil % 0.4 % (0.00-5.0); Eosinophil (Absolute #) 0.04 (0-0.5); Hematocrit 40.2 % (35-47); Hemoglobin 12.8 gm/dl (12.0-16.0); Lymphocyte (Absolute #) 2.83 (1.0-4.6); Lymphocytes % 26.1 % (24.0-44.0); Mean Cell Volume 87.4 fl (78-100); Mean Corpuscular Hemoglobin 27.8 pg (26-32); Mean Corpuscular Hgb Concent. 31.8 g/dl (32-36); Mean Platelet Volume 10.6 fl (7.5-11.0); Monocyte (Absolute #) 0.71 (0.0-1.3); Monocytes % 6.6 % (0.0-12.0); Neutrophil % 66.8 % (36.0-66.0); Platelet Count 235 K/mm3 (150-450); Red Cell Distribution Width 12.9 % (11.5-14.0); White Blood Count 10.8 K/mm3 (4.0-10.5)
[2020-08-07 19:10] LABS: Amphetamine,Urine NEGATIVE (NEGATIVE); Barbiturate,Urine NEGATIVE (NEGATIVE); Benzodiazepine,Urine NEGATIVE (NEGATIVE); Cocaine,Urine NEGATIVE (NEGATIVE); Methadone,Urine NEGATIVE (NEGATIVE); Opiate,Urine NEGATIVE (NEGATIVE); PCP,Urine NEGATIVE (NEGATIVE); THC,Urine NEGATIVE (NEGATIVE)
[2020-08-07] MEDS ORDERED: STADOL 2 MG IV PRN (22:42)
[2020-08-08] MEDS ORDERED: PITOCIN 30 UNITS/ LR 500 ML 30 UNITS/500 ML IV.SOLN. IV SCH ×4 (04:00→12:00)
[2020-08-08] MEDS: Lactated Ringers 1,000 ML IV SCH ×3 (05:56→20:40)
[2020-08-08] MEDS ORDERED: XYLOCAINE 1% HCL 20 ML MDV IJ PRN (08:00)
[2020-08-08] MEDS ORDERED: BRETHINE 1 MG/ML SQ PRN (08:00)
[2020-08-08] MEDS ORDERED: Lactated Ringers 1,000 ML IV ONE (13:21)
[2020-08-08] MEDS ORDERED: OB EPIDURAL NAROPIN/SUFENTANIL IN NACL EPIDURAL PRN (13:21)
[2020-08-08] MEDS ORDERED: Ephedrine Sulfate 50 MG/ML IV PRN (13:21)
[2020-08-09] MEDS ORDERED: Mylicon 80MG PO PRN (00:04)
[2020-08-09] MEDS ORDERED: CORTISONE 1% CREAM TP PRN (00:04)
[2020-08-09] MEDS ORDERED: Dermoplast Spray TP PRN (00:04)
[2020-08-09] MEDS ORDERED: TUCKS TP PRN (00:04)
[2020-08-09] MEDS ORDERED: LANSINOH 40 GM TOP PRN (00:04)
[2020-08-09] MEDS ORDERED: Dulcolax 10 MG SUPP PR PRN (00:04)
[2020-08-09] MEDS ORDERED: Anucort-HC SUPPOSITORY PR PRN (00:04)
[2020-08-09] MEDS: MOTRIN 400 MG PO PRN ×4 (00:16→20:48)
[2020-08-09] MEDS: Lactated Ringers 1,000 ML IV SCH (03:27)
[2020-08-09 05:36] LABS: Absolute Neutrophil Ct (ANC) 14.45 (1.4-6.9); BASOPHIL % 0.1 % (0.0-0.4); Basophil (Absolute #) 0.01 (0-0.4); Eosinophil (Absolute #) 0 (0-0.5); Hematocrit 39.1 % (35-47); Hemoglobin 12.5 gm/dl (12.0-16.0); Lymphocyte (Absolute #) 1.63 (1.0-4.6); Lymphocytes % 9.6 % (24.0-44.0); Mean Cell Volume 87.9 fl (78-100); Mean Corpuscular Hemoglobin 28.1 pg (26-32); Mean Platelet Volume 11.2 fl (7.5-11.0); Monocyte (Absolute #) 0.85 (0.0-1.3); Neutrophil % 85.3 % (36.0-66.0); Platelet Count 231 K/mm3 (150-450); Red Blood Count 4.45 M/mm3 (4.1-5.4); Red Cell Distribution Width 13.1 % (11.5-14.0); White Blood Count 16.9 K/mm3 (4.0-10.5)
[2020-08-09] MEDS: Colace 100 MG PO SCH ×2 (09:35→20:49)
[2020-08-09] MEDS ORDERED: FERREX 150 PO SCH (10:00)
[2020-08-09] MEDS ORDERED: M-M-R II Vaccine With Diluent SQ ONE (12:00)
--- NOTE | 2020-08-09 14:07 | PCM.NOTE ---
Date and Time: 08/09/20 1404 Subjective Assessment: ppd 1 pt resting in bed and doing well vss afebrile abd; soft uterus; firm lochia; mild a/p sp ppd 1 h/h stable anticipate discharge tomorrow OBJECTIVE DATA Vital Signs: Vital Signs - 24 hr Temp Pulse Resp BP BP Pulse Ox 08/09/20 08:00 98.0 F 56 L 18 122/57 08/09/20 04:00 98.5 F 83 17 115/63 97 08/09/20 02:00 98.6 F 82 19 112/59 98 08/09/20 01:30 99.4 F 86 19 94/55 98 08/09/20 01:00 100 F 87 19 95/54 99 08/09/20 00:30 100 F 91 H 19 101/55 99 08/09/20 00:15 100 F 97 H 19 105/57 97 08/09/20 00:00 100 F 97 H 19 102/65 98 08/08/20 23:45 100.1 F 90 19 106/53 98 08/08/20 23:30 100.3 F 109 H 20 107/56 97 08/08/20 23:00 88 22 138/61 96 08/08/20 22:45 102 H 20 131/64 99 08/08/20 22:30 109 H 114/57 08/08/20 22:15 75 105/52 08/08/20 22:00 98 F 91 H 19 106/54 98 08/08/20 21:45 81 19 127/58 98 08/08/20 21:30 93 H 106/68 08/08/20 21:15 98 H 96/54 08/08/20 21:00 77 110/59 08/08/20 20:45 82 106/66 08/08/20 20:30 96 H 100/62 08/08/20 20:15 88 98/54 08/08/20 20:00 98.8 F 81 18 97/54 97 08/08/20 19:45 82 19 100/57 97 08/08/20 19:30 99.3 F 80 18 103/56 97 08/08/20 19:15 84 111/54 08/08/20 19:00 93 H 18 97/54 08/08/20 18:41 109 H 18 97/53 08/08/20 18:30 77 18 114/54 08/08/20 18:15 96 H 18 114/55 08/08/20 18:00 80 18 116/54 08/08/20 17:45 86 18 99/70 08/08/20 17:30 86 18 101/55 08/08/20 17:15 85 18 101/55 08/08/20 17:00 81 18 102/53 08/08/20 16:45 79 18 101/52 08/08/20 16:30 107 H 18 97/55 08/08/20 16:15 107 H 18 96/55 08/08/20 16:00 72 18 103/51 95 08/08/20 15:45 73 18 107/55 97 08/08/20 15:30 69 18 95 08/08/20 15:15 75 18 101/56 96 08/08/20 15:00 91 H 18 111/55 100 08/08/20 14:45 86 18 106/61 100 08/08/20 14:30 73 18 138/64 Pain Assessment - Last Documented Pain Intensity [Lower Medial] 0 Pain Intensity 3 Pain Scale Used 0-10 Pain Scale Intake and Output: Intake & Output 08/07/20 08/08/20 08/09/20 08/10/20 11:59 11:59 11:59 11:59 Intake Total 1200 4251 Output Total 1250 Balance 1200 3001 Weight 129.727 kg Lab Results: Lab Results-Last 24 Hours 08/09/20 Range/Units 04:20 WBC 16.9 H (4.0-10.5) K/mm3 RBC 4.45 (4.1-5.4) M/mm3 Hgb 12.5 (12.0-16.0) gm/dl Hct 39.1 (35-47) % MCV 87.9 (78-100) fl MCH 28.1 (26-32) pg MCHC 32.0 (32-36) g/dl RDW 13.1 (11.5-14.0) % Plt Count 231 (150-450) K/mm3 MPV 11.2 H (7.5-11.0) fl Gran % 85.3 H (36.0-66.0) % Eos # (Auto) 0 (0-0.5) Absolute Lymphs (auto) 1.63 (1.0-4.6) Absolute Monos (auto) 0.85 (0.0-1.3) Lymphocytes % 9.6 L (24.0-44.0) % Monocytes % 5.0 (0.0-12.0) % Eosinophils % 0.0 (0.00-5.0) % Basophils % 0.1 (0.0-0.4) % Absolute Granulocytes 14.45 H (1.4-6.9) Basophils # 0.01 (0-0.4)
[2020-08-10 01:16] VITALS: O2SAT 98
[2020-08-10] MEDS: MOTRIN 400 MG PO PRN (04:26)
[2020-08-10 08:22] VITALS: BP 111/61; PULSE 61
--- NOTE | 2020-08-10 08:37 | PCM.NOTE ---
Date and Time: 08/10/20835 Subjective Assessment: ppd 2 pt resting in bed and doing well vss afebrile abd; soft uterus; firm lochia; mild a/p sp ppd 2 dc home today fu office 3 wks OBJECTIVE DATA Vital Signs: Vital Signs - 24 hr Temp Pulse Resp BP Pulse Ox 08/10/20 08:00 97.6 F 61 18 111/61 08/10/20 01:00 97.8 F 69 20 126/65 98 08/09/20 20:00 97.6 F 66 18 118/57 97 08/09/20 14:00 97.8 F 72 18 117/68 Pain Assessment - Last Documented Pain Intensity [Lower Medial] 1 Pain Intensity 4 Pain Scale Used 0-10 Pain Scale Intake and Output: Intake & Output 08/07/20 08/08/20 08/09/20 08/10/20 11:59 11:59 11:59 11:59 Intake Total 1200 4251 1100 Output Total 1250 Balance 1200 3001 1100 Weight 129.727 kg
--- NOTE | 2020-08-10 08:40 | PCM.DS ---
Discharge Summary Date of Admission: 08/07/20 17:20 Admitting Physician: CARROLL CLARKE DO Consults: Consults on Case 08/09/20 08:00 Notify Physician ROUTINE Primary Care Provider: NO FAMILY DOCTOR Allergies Allergies No Known Drug Allergies Allergy (Verified 08/07/20 17:37) Hospital Summary - Hospital Course Hospital Course: pt admitted on august 07 for cytotec induction and subsequently delivered live baby girl at 1112 pm on august 08 without complication. during tx pt did well and was able to ambulate and tolerate diet. pt advised to fu in 3 wks for care and all questions answered to her satisfaction. pt stable for dc at this time. pt had stable h/h prior to dc. - Vitals & Intake/Output Vital Signs: Vital Signs Temperature 97.6 F 08/10/20 08:00 Pulse Rate 61 08/10/20 08:00 Respiratory Rate 18 08/10/20 08:00 Blood Pressure 111/61 08/10/20 08:00 O2 Sat by Pulse Oximetry 98 08/10/20 01:00 Intake & Output: Intake & Output 08/07/20 08/08/20 08/09/20 08/10/20 11:59 11:59 11:59 11:59 Intake Total 1200 4251 1100 Output Total 1250 Balance 1200 3001 1100 Weight 129.727 kg - Lab Result Diagrams: 08/09/20 04:20 Final Diagnosis/Problem List - Final Discharge Diagnosis/Problem (1) Vaginal delivery Current Visit: Yes Status: Acute Code(s): O80 - ENCOUNTER FOR FULL-TERM UNCOMPLICATED DELIVERY - Discharge Disposition: Home, Self-Care Condition: Stable Prescriptions: No Action No Reportable Medications [No Reported Medications] Instructions: Managing Pain During Labor and Delivery, Labor Induction, Misoprostol Follow up with: DOCTOR,NO FAMILY [Primary Care Provider] - CARROLL CLARKE DO [ACTIVE STAFF] - Call for Appointment (should fu in office in 3 wks for fu care )
== END 2020-08-10 10:20 | disposition home or self-care (01) | DRG 807 ==
LOC: OB 17:01 → OBSVTOIN 17:20
PROVIDERS: ADMIT Obstetrics & Gynecology; ATTEND Obstetrics & Gynecology
PROC: 10E0XZZ Delivery of Products of Conception, External Approach (ICD-10-PCS; principal; 2020-08-08)
PROC: 0KQM0ZZ Repair Perineum Muscle, Open Approach (ICD-10-PCS; 2020-08-08)
DX: O70.1 Second degree perineal laceration during delivery (principal); Z37.0 Single live birth; Z3A.39 39 weeks gestation of pregnancy
CPT/HCPCS: 36415; 59409; 59426; 80307; 85025; 87340; 90471; 90707; G0378; J2795; A9270-GY